=== PATIENT | male | born 1995 | race Caucasian/White ===

== ENCOUNTER 2022-06-20 11:32 | Emergency (ER) | payer OTHER ==
[2022-06-20 12:20] LABS: CHLORIDE,CL 102 mmol/L (98-107); SODIUM,NA 138 mmol/L (136-145)
[2022-06-20 12:21] LABS: ACETAMINOPHEN 0 ug/ml (10-30); ANION GAP 14.6 mmol/L (5-15); ESTIMATED GFR 120 mL/min (>=60)
[2022-06-20 12:47] LABS: BUPRENORPHINE,URINE NEGATIVE (NEGATIVE); MARIJUANA,URINE NEGATIVE (NEGATIVE); METHYLENEDIOXYMETHAMP,UR NEGATIVE (NEGATIVE); PHENCYCLIDINE,URINE NEGATIVE
== END 2022-06-20 13:41 | disposition home or self-care (01) ==
LOC: VM.ED 11:32
DX: T71.162A Asphyxiation due to hanging, intentional self-harm, initial encounter (principal); Z72.0 Tobacco use
CPT/HCPCS: 36415; 80053; 80143; 80179; 80305-QW; 80307; 81001; 85025; 86140; 99284; 99285